=== PATIENT | male | born 1960 | race Caucasian/White ===

== ENCOUNTER 2016-05-08 07:50 | Emergency (ER) | payer OTHER ==
[~2016-05-08] VITALS: Ht 182.9 cm; Wt 124.0 kg
[~2016-05-08 07:50] MED LIST: ASPI81TA82 PO; DIAZ2 PO; MECL-62 PO
[2016-05-08 07:56] VITALS: BP 149/98; PULSE 57; RESP 16; TEMP 97.5; O2SAT 99
--- NOTE | 2016-05-08 08:40 | PD ---
HPI Chief Complaint: Abdominal Pain Time Seen by Provider: 08:32 Travel History International Travel<30 days: No Contact w/Intl Traveler<30days: No Traveled to known affect area: No History of Present Illness HPI Patient presents with complaints of epigastric discomfort with mild shortness of breath that radiates around his right flank into his back. Denies any nausea or vomiting. Denies any acid brash. Denies any cardiac history. Nondiabetic. Stopped smoking about a year ago. Positive family history for cardiac disease. Onset last night at 9 PM. Denies diaphoresis. Reports a loose bowel movement last night. History of abdominal hernia repair as a young child. No relief with Gas-X. PFSH Past Medical History Hx Anticoagulant Therapy: No Diabetes: No Diminished Hearing: No Medical other: Yes (vertigo) Past Surgical History Abdominal Surgery: Yes (HERNIA) Social History Alcohol Use: Yes (weekends) Tobacco Use: Yes (1 PPD) Substance Use: No Allergies-Medications (Allergen,Severity, Reaction): Coded Allergies: Erythromycins (Verified Allergy, Severe, 05/08/16) Reported Meds & Prescriptions Reported Meds & Active Scripts Active No Active Prescriptions or Reported Medications Review of Systems Gastrointestinal: Positive: Abdominal Pain Physical Exam Narrative GENERAL: Well-nourished, well-developed patient. SKIN: Warm and dry. HEAD: Normocephalic. EYES: No scleral icterus. No injection or drainage. NECK: Supple, trachea midline. No JVD or lymphadenopathy. CARDIOVASCULAR: Regular rate and rhythm without murmurs, gallops, or rubs. RESPIRATORY: Breath sounds equal bilaterally. No accessory muscle use. GASTROINTESTINAL: Abdomen soft, non-tender, nondistended. No hepatosplenomegaly , discomfort localized to the epigastric region MUSCULOSKELETAL: No cyanosis, or edema. BACK: Nontender without obvious deformity. No CVA tenderness. Data Data Last Documented VS Vital Signs Date Time Temp Pulse Resp B/P Pulse Ox O2 Delivery O2 Flow Rate FiO2 05/08/16 07:56 97.5 57 16 149/98 99 Orders Complete Blood Count With Diff (05/08/16 08:32) Comprehensive Metabolic Panel (05/08/16 08:32) Lipase (05/08/16 08:32) Lactic Acid (05/08/16 08:32) Iv Access Insert/Monitor (05/08/16 08:32) Ecg Monitoring (05/08/16 08:32) Oximetry (05/08/16 08:32) Pantoprazole Inj (Protonix Inj) (05/08/16 08:45) Sodium Chloride 0.9% Flush (Ns Flush) (05/08/16 08:45) Electrocardiogram (05/08/16 08:32) Famotidine Inj (Pepcid Inj) (05/08/16 08:45) Al-Mag Hy-Si 40-40-4 Mg/Ml Liq (Mag-Al P (05/08/16 08:45) Lidocaine 2% Viscous (Xylocaine 2% Visco (05/08/16 08:45) Ckmb (Isoenzyme) Profile (05/08/16 08:32) Magnesium (Mg) (05/08/16 08:32) Troponin I (05/08/16 08:32) Bilateral Bp Monitoring (05/08/16 08:32) Oxygen Administration (05/08/16 08:32) Aspirin (Aspirin) (05/08/16 08:45) Ondansetron Inj (Zofran Inj) (05/08/16 09:15) Ondansetron Inj (Zofran Inj) (05/08/16 09:05) CKMB (05/08/16 08:50) CKMB% (05/08/16 08:50) Abdomen, Flat & Upright (05/08/16 ) Labs Laboratory Tests Test 05/08/16 08:50 White Blood Count 8.5 TH/MM3 Red Blood Count 4.91 MIL/MM3 Hemoglobin 13.1 GM/DL Hematocrit 40.5 % Mean Corpuscular Volume 82.5 FL Mean Corpuscular Hemoglobin 26.7 PG Mean Corpuscular Hemoglobin 32.4 % Concent Red Cell Distribution Width 11.7 % Platelet Count 214 TH/MM3 Mean Platelet Volume 7.8 FL Neutrophils (%) (Auto) 79.2 % Lymphocytes (%) (Auto) 14.3 % Monocytes (%) (Auto) 3.7 % Eosinophils (%) (Auto) 0.3 % Basophils (%) (Auto) 2.5 % Neutrophils # (Auto) 6.8 TH/MM3 Lymphocytes # (Auto) 1.2 TH/MM3 Monocytes # (Auto) 0.3 TH/MM3 Eosinophils # (Auto) 0.0 TH/MM3 Basophils # (Auto) 0.2 TH/MM3 CBC Comment DIFF FINAL Differential Comment Sodium Level 138 MEQ/L Potassium Level 4.7 MEQ/L Chloride Level 105 MEQ/L Carbon Dioxide Level 21.7 MEQ/L Anion Gap 11 MEQ/L Blood Urea Nitrogen 24 MG/DL Creatinine 1.00 MG/DL Estimat Glomerular Filtration 77 ML/MIN Rate Random Glucose 134 MG/DL Lactic Acid Level 1.6 mmol/L Calcium Level 8.7 MG/DL Magnesium Level 2.2 MG/DL Total Bilirubin 0.6 MG/DL Aspartate Amino Transf 17 U/L (AST/SGOT) Alanine Aminotransferase 31 U/L (ALT/SGPT) Alkaline Phosphatase 75 U/L Total Creatine Kinase 192 U/L Creatine Kinase MB 4.3 NG/ML Troponin I LESS THAN 0.02 NG/ML Total Protein 7.5 GM/DL Albumin 3.7 GM/DL Lipase 133 U/L [facility] Medical Decision Making Medical Screen Exam Complete: Yes Emergency Medical Condition: Yes Differential Diagnosis Gastritis, gastric ulcer, duodenal ulcer, ACS Narrative Course Assessment and plan discussed with patient and at bedside. EKG reveals sinus bradycardia with first degree block rate of 51. Cardiac enzymes are negative. Last 72 hours Impressions Abdomen X-Ray 05/08/16 0000 Signed Impressions: Service Date/Time: Sunday, May 08, 2016 09:39 - CONCLUSION: No acute abnormalities. Dwayne Mccarty MD Diagnosis Primary Impression: Epigastric discomfort Patient Instructions: General Instructions Additional Instructions: Encouraged to avoid aggravating factors of reflux including but not limited to alcohol tobacco late large meals spicy meals and weight. Aggressive treatment with proton pump inhibitor and H2 tera. Encouraged a bland high-fiber BRAT diet. Encouraged to follow-up with PCP to assess benefit. Med/Other Pt SpecificInfo: Prescription(s) given Scripts Ranitidine (Zantac)150 Mg Pcg429 Mg PO BID 15 Days Ref 0 Prov:Nir Saleem MD 05/08/16 Pantoprazole (Protonix)40 Mg Tab40 Mg PO BID 15 Days Ref 0 Prov:Nir Saleem MD 05/08/16 Disposition: 01 DISCHARGE HOME Condition: Good Nir Saleem MD May 08, 2016 08:40
[2016-05-08] MEDS ORDERED: FAMOTIDINE 20 MG/2 ML VIAL IV PUSH ONE (08:45)
[2016-05-08] MEDS ORDERED: SODIUM CHLORIDE 0.9% FLUSH 5 ML FLUSH IVF PRN (08:45)
[2016-05-08] MEDS ORDERED: ASPIRIN 325 MG TAB PO ONE (08:45)
[2016-05-08] MEDS ORDERED: LIDOCAINE VISCOUS 2% SOLN 15 ML UDC PO ONE (08:45)
[2016-05-08] MEDS ORDERED: PANTOPRAZOLE SODIUM 40 MG VIAL IVP ONE (08:45)
[2016-05-08] MEDS ORDERED: ALUMINUM/MAGNESIUM/SIMETH 30 ML CUP PO ONE (08:45)
[2016-05-08 08:57] LABS: AUTOMATED NEUTROPHIL # 6.8 TH/MM3 (1.8-7.7); BASOPHIL # 0.2 TH/MM3 (0-0.2); BASOPHIL % 2.5 % (0.0-2.0); EOSINOPHIL % 0.3 % (0.0-4.0); HEMATOCRIT 40.5 % (39.0-51.0); HEMO FLAGS DIFF FINAL; LYMPH % 14.3 % (9.0-44.0); LYMPHOCYTE # 1.2 TH/MM3 (1.0-4.8); MEAN CELL VOLUME 82.5 FL (80.0-100.0); MEAN CORPUSCULAR HEMOGLOBIN 26.7 PG (27.0-34.0); MEAN CORPUSCULAR HGB CONC 32.4 % (32.0-36.0); MONO % 3.7 % (0.0-8.0); NEUT % 79.2 % (16.0-70.0); PLATELET COUNT 214 TH/MM3 (150-450); RED BLOOD COUNT 4.91 MIL/MM3 (4.50-5.90); RED CELL DISTRIBUTION WIDTH 11.7 % (11.6-17.2); WHITE BLOOD COUNT 8.5 TH/MM3 (4.0-11.0)
[2016-05-08] MEDS ORDERED: ONDANSETRON HCL 4 MG/2 ML VIAL ONE (09:05)
[2016-05-08 09:06] LABS: CHLORIDE 105 MEQ/L (98-107); POTASSIUM 4.7 MEQ/L (3.5-5.1); SODIUM (NA) 138 MEQ/L (136-145)
[2016-05-08 09:10] LABS: ANION GAP 11 MEQ/L (5-15); BICARBONATE 21.7 MEQ/L (21.0-32.0); BLOOD UREA NITROGEN 24 MG/DL (7-18); MAGNESIUM 2.2 MG/DL (1.5-2.5)
[2016-05-08 09:13] LABS: ALT (GPT) 31 U/L (12-78); AST (GOT) 17 U/L (15-37); GLOMERULAR FILTRATION RATE 77 ML/MIN (>89)
[2016-05-08 09:14] LABS: TOTAL BILIRUBIN ADULT 0.6 MG/DL (0.2-1.0)
[2016-05-08 09:15] LABS: CREATINE KINASE 192 U/L (39-308)
[2016-05-08] MEDS ORDERED: ONDANSETRON HCL 4 MG/2 ML VIAL IV PUSH ONE (09:15)
[2016-05-08 09:16] LABS: ALKALINE PHOSPHATASE 75 U/L (45-117)
--- NOTE | 2016-05-08 09:54 | RADHPO ---
EXAM DATE/TIME: 05/08/2016 09:39 [facility] COMPARISON: No previous studies available for comparison. INDICATIONS : Abdominal pain. MEDICAL HISTORY : None. SURGICAL HISTORY : Hernia ENCOUNTER: Initial ACUITY: 1 day PAIN SCORE: 8/10 LOCATION: Abdomen FINDINGS: Supine and upright views of the abdomen were performed. The abdominal bowel gas pattern is normal. No air fluid levels are seen. No abnormal masses, calcifications, or organomegaly is seen. The visu alized lower lungs are clear. No evidence of free intraperitoneal gas. The osseous structures are u nremarkable. Degenerative changes lower lumbar spine and both hips. CONCLUSION: No acute abnormalities. Dwayne Mccarty MD on May 08, 2016 at 9:52 Board Certified Radiologist. This report was verified electronically.
[2016-05-08 09:55] LABS: CKMB 4.3 NG/ML (0.5-3.6)
[2016-05-08] MEDS ORDERED: ZANT150T2 PO (10:06)
[2016-05-08] MEDS ORDERED: PROT40TA PO (10:06)
[2016-05-08] MEDS ORDERED: HYDR-3516 PO (10:08)
--- NOTE | 2016-05-09 12:22 | EKG ---
Date Performed: 05/08/2016 Time Performed: 08:08:44 PTAGE: 55 years EKG: Sinus bradycardia with borderline 1st degree A-V block Poor R wave progression - probable n ormal variant Borderline ECG PREVIOUS TRACING : 08/19/2014 08.10 DOCTOR: Gerardo Kraft Interpretating Date/Time 05/09/2016 12:21:26
== END 2016-05-08 10:21 | disposition home or self-care (01) ==
LOC: PHED 07:50
DX: R10.13 Epigastric pain (principal); R00.1 Bradycardia, unspecified; I44.0 Atrioventricular block, first degree; R06.02 Shortness of breath; F17.210 Nicotine dependence, cigarettes, uncomplicated
CPT/HCPCS: 74020; 80053; 82550; 82552; 83605; 83690; 83735; 84484; 85025; 93005; 96374; 96375; 99284; C9113; J2405